=== PATIENT | male | born 1960 | race Caucasian/White ===

== ENCOUNTER → 2023-06-29 | Outpatient (CLI) | payer MEDICAID ==
[~2023-06-29] MED LIST: ATARAX25 MG PO; PREDNISONE20 MG PO
[2023-06-29 13:22] LABS: HEMATOCRIT 47.6 % (42.0-52.0); MEAN CELL VOLUME 89.6 fl (80.0-94.0); MEAN CORPUSCULAR HGB 30.5 pg (27.0-31.0); MEAN PLATELET VOLUME 10.4 fl (9.6-12.3); RED BLOOD COUNT 5.31 10*6/uL (4.50-5.90)
[2023-06-29 13:50] LABS: ALKALINE PHOSPHATASE 70 U/L (46-116); BUN 6 mg/dl (9-23); CHLORIDE 106 mmol/L (98-107); CHOLESTEROL 174 mg/dL (<200); LDL CHOLESTEROL 101 mg/dL (9-159); POTASSIUM 4.1 mmol/L (3.4-5.1); SGPT/ALT 10 U/L (5-49); TOTAL PROTEIN 7.3 gm/dL (6.0-8.0); TRIGLYCERIDES 213 mg/dl (<150); VALPROIC ACID (DEPAKENE) 50.2 ug/ml (50-100)
[2023-06-29 13:53] LABS: VITAMIN D, 25-HYDROXY 50.4 ng/mL (30-100)
== END | disposition home or self-care (01) ==
LOC: LAB 12:15
PROVIDERS: ATTEND Family Medicine
DX: Z12.5 Encounter for screening for malignant neoplasm of prostate (principal); E74.00 Glycogen storage disease, unspecified; F41.1 Generalized anxiety disorder; E74.9 Disorder of carbohydrate metabolism, unspecified; I10 Essential (primary) hypertension; G47.00 Insomnia, unspecified

== ENCOUNTER 2025-05-28 14:03 | Emergency (ER) | payer SELFPAY ==
[~2025-05-28] VITALS: Ht 167.6 cm; Wt 81.6 kg
[2025-05-28] MEDS ORDERED: Depakote500 MG PO (19:19)
[2025-05-28] MEDS ORDERED: DIVALPROEX ER 500 MG TAB PO ONE ×2 (19:25)
== END 2025-05-28 20:02 | disposition home or self-care (01) ==
LOC: ED 14:03
DX: G40.909 Epilepsy, unspecified, not intractable, without status epilepticus (principal); Z76.0 Encounter for issue of repeat prescription; Z79.899 Other long term (current) drug therapy